=== PATIENT | male | born 1970 | race Caucasian/White ===

== ENCOUNTER 2018-06-10 03:02 | Emergency (ER) | payer MEDICAID ==
[~2018-06-10] VITALS: Ht 182.9 cm; Wt 145.0 kg
[~2018-06-10 03:02] MED LIST: GABA-531 PO; GLIP10TA10 PO; HYDR10TA34 PO; IBUP-2030 PO; LISI40TA4 PO; LISINOPRIL; NAPROXEN; NITR0.4T49 SL
[2018-06-10 03:03] VITALS: BP 138/90
== END 2018-06-10 03:25 | disposition left against medical advice (07) ==
LOC: ER 03:02
DX: Z53.21 Procedure and treatment not carried out due to patient leaving prior to being seen by health care provider (principal)
CPT/HCPCS: 93005